=== PATIENT | female | born 1955 | race Caucasian/White ===

== ENCOUNTER → 2016-06-02 | Outpatient (CLI) | payer OTHER | LOC: LAB 16:02 | DX: Z01.419 Encounter for gynecological examination (general) (routine) without abnormal findings (principal) ==

== ENCOUNTER → 2016-06-09 | Outpatient (CLI) | payer OTHER | LOC: MAMMO 15:56 | DX: Z12.31 Encounter for screening mammogram for malignant neoplasm of breast (principal); Z01.419 Encounter for gynecological examination (general) (routine) without abnormal findings | CPT/HCPCS: G0202 ==

== ENCOUNTER → 2018-09-20 | Outpatient (CLI) | payer OTHER ==
[2013-02-22 15:30] VITALS: BP 134/73
== END ==
LOC: MAMMO 11:23
DX: Z00.00 Encounter for general adult medical examination without abnormal findings (principal); Z12.31 Encounter for screening mammogram for malignant neoplasm of breast; Z78.0 Asymptomatic menopausal state; M54.5 Low back pain

== ENCOUNTER → 2020-09-24 | Outpatient (REF) | LOC: LAB 11:46 | DX: S31.809A Unspecified open wound of unspecified buttock, initial encounter (principal) ==

== ENCOUNTER 2021-04-28 13:20 | Emergency (ER) | payer OTHER ==
[~2021-04-28] VITALS: Ht 165.1 cm; Wt 65.0 kg
[2021-04-28] MEDS ORDERED: LEVOTHYROXIN0.025 MG PO (13:31)
[2021-04-28 14:21] LABS: BASO # 0.02 K/mm3 (0.02-0.10); HEMATOCRIT 39.2 % (37.0-47.0); HEMOGLOBIN 13.4 g/dL (12.5-16.0); LYMPH# 0.79 K/mm3 (1.50-4.00); MEAN CELL VOLUME 91 fl (78-100); MEAN CORPUSCULAR HEMOGLOBIN 31 pg (27-31); MEAN CORPUSCULAR HGB CONC 34 g/dL (33-37); NEU # 19.68 K/mm3 (1.40-6.50); PLATELET COUNT 230 K/mm3 (130-400); RED BLOOD COUNT 4.31 M/mm3 (4.10-5.30); RED CELL DISTRIBUTION WIDTH 12.9 % (11.5-14.5)
[2021-04-28 14:22] LABS: WHITE BLOOD COUNT 21.8 K/mm3 (4.8-10.8)
[2021-04-28 15:49] LABS: D-DIMER 2.36 mg/L FEU (0.15-0.50)
[2021-04-28 17:54] LABS: URINE APPEARANCE HAZY; URINE BILIRUBIN NEGATIVE (NEGATIVE); URINE COLOR YELLOW; URINE GLUCOSE NEGATIVE (NEGATIVE); URINE KETONE 1+ (NEGATIVE); URINE NITRATE POSITIVE (NEGATIVE); URINE PROTEIN(semi-quant) 3+ (NEGATIVE); URINE UROBILINOGEN NORMAL (NORMAL)
[2021-04-28 17:55] LABS: URINE BLOOD 250 ery/uL (NEGATIVE); URINE LEUKOCYTE ESTERASE TRACE (NEGATIVE)
[2021-04-28 23:56] VITALS: BP 134/47
== END 2021-04-28 23:56 | disposition short-term general hospital (02) ==
LOC: ED 13:20
PROVIDERS: Nurse Practitioner
DX: U07.1 COVID-19 (principal); I95.9 Hypotension, unspecified; N39.0 Urinary tract infection, site not specified; J18.1 Lobar pneumonia, unspecified organism; E03.9 Hypothyroidism, unspecified; Z79.890 Hormone replacement therapy
CPT/HCPCS: J0696; J1100; J2550; J7030; J7050; J7060; Q9967

== ENCOUNTER → 2021-04-28 | Outpatient (CLI) | payer OTHER, MEDICARE ==
[~2021-04-28] VITALS: Ht 165.1 cm; Wt 60.9 kg
[~2021-04-28] MED LIST: LEVOTHYROXIN0.025 MG PO
[2021-04-28 12:30] VITALS: BP 109/51
[2021-04-28 12:51] LABS: HEMOGLOBIN 13.4 g/dL (12.5-16.0); MEAN PLATELET VOLUME 10.6 fl (7.4-10.4); RED BLOOD COUNT 4.32 M/mm3 (4.10-5.30); RED CELL DISTRIBUTION WIDTH 12.5 % (11.5-14.5)
[2021-04-28 12:55] LABS: ALBUMIN 3.6 g/dL (3.4-4.8); POTASSIUM 3.4 mmol/L (3.5-5.1)
[2021-04-28 12:57] LABS: CALCIUM 9.8 mg/dL (8.3-10.5)
[2021-04-28 12:58] LABS: TOTAL PROTEIN 6.9 g/dL (6.2-8.1)
[2021-04-28 13:00] LABS: TOTAL BILIRUBIN 1.4 mg/dL (0.2-1.2)
[2021-04-28 13:01] LABS: WHITE BLOOD COUNT 21.7 K/mm3 (4.8-10.8)
== END ==
LOC: AMSURD 11:36 → LAB 11:36
PROVIDERS: Nurse Practitioner Primary Care
DX: R42 Dizziness and giddiness (principal); R11.2 Nausea with vomiting, unspecified
CPT/HCPCS: J2405; J3360; J7030

== ENCOUNTER → 2021-05-08 | Outpatient (CLI) | payer OTHER | LOC: RAD 09:38 | DX: U07.1 COVID-19 (principal) ==

== ENCOUNTER → 2024-03-13 | Outpatient (CLI) | payer OTHER | LOC: MAMMO 08:29 | DX: Z12.31 Encounter for screening mammogram for malignant neoplasm of breast (principal) ==

== ENCOUNTER 2024-06-03 08:30 | Emergency (ER) | payer MEDICARE, OTHER ==
[~2024-06-03] VITALS: Ht 162.6 cm; Wt 59.3 kg
[2024-06-03] MEDS ORDERED: Ketorolac 30 MG/ML VIAL IM ONE (09:00)
[2024-06-03] MEDS ORDERED: Acetaminophen 325 MG TAB PO ONE (09:45)
[2024-06-03] MEDS ORDERED: oxyCODONE/Acetaminophen 5-325 MG TAB PO ONE (09:45)
[2024-06-03] MEDS ORDERED: PERCOCET 325 MG1 TA2 PO (09:59)
[2024-06-03 10:12] VITALS: BP 126/74
== END 2024-06-03 10:52 | disposition home or self-care (01) ==
LOC: ED 08:30
DX: S52.501A Unspecified fracture of the lower end of right radius, initial encounter for closed fracture (principal); S52.611A Displaced fracture of right ulna styloid process, initial encounter for closed fracture; W18.30XA Fall on same level, unspecified, initial encounter
CPT/HCPCS: J1885